=== PATIENT | male | born 1950 | race Caucasian/White ===

== ENCOUNTER → 2019-02-10 | Outpatient (CLI) | payer OTHER | END | disposition home or self-care (01) | LOC: PETCFH 12:44 | PROVIDERS: ATTEND Internal Medicine | DX: C61 Malignant neoplasm of prostate (principal); J44.9 Chronic obstructive pulmonary disease, unspecified; I10 Essential (primary) hypertension; E78.5 Hyperlipidemia, unspecified; E11.9 Type 2 diabetes mellitus without complications; F17.200 Nicotine dependence, unspecified, uncomplicated; Z72.89 Other problems related to lifestyle; Z79.899 Other long term (current) drug therapy; Z79.4 Long term (current) use of insulin; Z88.1 Allergy status to other antibiotic agents | CPT/HCPCS: 78815; A9552 ==

== ENCOUNTER 2019-04-16 12:32 | Outpatient (CLI) | payer OTHER | END 2019-04-16 23:59 | disposition home or self-care (01) | LOC: PETCFH 12:32 | PROVIDERS: ATTEND Internal Medicine | DX: C61 Malignant neoplasm of prostate (principal) | CPT/HCPCS: 78815; A9588 ==